=== PATIENT | male | born 1960 | race Caucasian/White ===

== ENCOUNTER 2016-06-24 07:50 | Day surgery (SDC) | payer OTHER ==
[2016-06-24] MEDS ORDERED: PROPOFOL 10 MG/ML VIAL IV ONE (12:53)
[2016-06-24] MEDS ORDERED: LIDOCAINE 2% MDV (20MG/ML) 20ML VIAL IV ONE (12:53)
[2016-06-24] MEDS ORDERED: MIDAZOLAM HCL 2MG/2ML VIAL IV ONE (12:53)
--- NOTE | 2016-06-24 18:10 | Operative Note ---
DATE OF SURGERY: 06/24/2016 Surgeon: Monroe Arnold DO PREOPERATIVE DIAGNOSIS: Diverticulitis, screening colonoscopy. POSTOPERATIVE DIAGNOSIS: Diverticulitis, screening colonoscopy. OPERATION: COLONOSCOPY with biopsy. Indication: The patient is a 48-year-old male who had ongoing left lower quadrant pain. He was treated for presumed diverticulitis. I did see him in the clinic afterwards where CT scan was obtained. This did show scattered diverticulosis. He had never had a colonoscopy. We discussed colonoscopy, risks, benefits, and alternatives. Risks include bleeding, infection, perforation, missed lesions, and he understood this fully. Thereafter, consent was signed, questions answered. PROCEDURE: He was taken to the operating room and placed in the supine position. Appropriate monitoring was placed including nasal O2, pulse ox monitoring, and blood pressure cuff. He was rotated into the left lateral position. Propofol anesthesia was titrated to effect. After the go-ahead by Anesthesia, digital rectal exam was done which revealed no internal masses. At this time, a well-lubricated [id number] colonoscope inserted into the patient's rectum and advanced up to the sigmoid colon where scattered diverticulosis was noted. The patient also had some hyperemic areas where random biopsies were taken. The scope was advanced through the descending colon, transverse colon, ascending colon to the cecum. This was advanced easily. Once the cecum was reached, it was identified by the appendiceal orifice and the ileocecal valve. Photographs were taken. I did have to do a bit of irrigation and suctioning in the cecum due to inadequate prep. All mercedes were clearly seen. The scope was then slowly withdrawn. There were normal folds and distensibility seen. The rest of the colon was examined and noted to be free of any pathology. The left-sided diverticulosis was again noticed. At the level of the rectum, a retroflexion maneuver was done. There were grade 1 hemorrhoids. At this time the scope was straightened, gas was evacuated, scope was removed. FINDINGS AT TIME OF COLONOSCOPY: 1. Scattered left-sided diverticulosis. 2. Left-sided colitis. Biopsies pending. RECOMMENDATIONS: 1. I recommend a high-fiber diet of over 30 g a day. 2. Repeat in 10 years or sooner if any problems arise. Monroe Arnold DO CC: Sourav MORELOS
== END 2016-06-24 09:47 | disposition home or self-care (01) ==
LOC: HOP 07:50
PROVIDERS: ATTEND Surgery
DX: Z13.818 Encounter for screening for other digestive system disorders (principal); K57.30 Diverticulosis of large intestine without perforation or abscess without bleeding